=== PATIENT | male | born 1980 | race Caucasian/White ===

== ENCOUNTER 2022-11-13 13:29 | Emergency (ER) | payer BC, SELFPAY ==
[2022-11-13 13:35] VITALS: BP 116/69; PULSE 68; RESP 20; TEMP 36.4; O2SAT 98
--- NOTE | 2022-11-13 13:45 | DI.RAD_ITS ---
Exam(s) XR HAND LT COMPLETE EXAM: XR HAND LT COMPLETE CLINICAL HISTORY: crush injury. TECHNIQUE: 2D digital imaging was performed. Three views. COMPARISON: No exams were available for comparison FINDINGS: BONES: No acute fracture is present. No bony destructive lesion is seen. JOINTS: No dislocation present. SOFT TISSUE: Normal. IMPRESSION: Unremarkable radiographs of the left hand. DATA REPOSITORY: RADIATION DOSE DELIVERED:
--- NOTE | 2022-11-13 13:47 | W.ED.GENAD ---
Discharge Plan Disposition Patient Disposition: Home Condition: Good Discharge Details Clinical Impression: Crush injury of hand, Laceration of hand ED Provider: Alia Perez Home Meds and New Rx's Prescriptions: No Action No Known Home Meds Discharge Instructions Instructions: Laceration (ED) Additional Instructions: Imaging and exam are reassuring here today. No evidence of fracture dislocation or ligament injury. Please encourage rest, ice, elevation. Tylenol and ibuprofen as needed for discomfort. Please monitor wound for signs of infection including redness, warmth, drainage, fever/chills, increased pain. If you develop these or other new/worsening symptoms please seek care urgently once again. Referral for local primary care has been sent. Be aware that the laceration you sustained is thin enough that the tissue does not appear viable and will likely come off with time. Discharge Data Discharge Date/Time-TO BE ENTERED AT DEPARTURE: 11/13/22 15:00 Medical Decision Making Patient is a pleasant 42-year-old [id number] male presents today with chief complaint of left hand pain. He reports that prior to arrival he was moving a large oil tank which he estimates to hold 275 gallons down a flight of stairs when it slipped falling the last 6 inches crushing his hand between the tank and the wall. He did suffer a palmar side sided laceration which he has cleansed and closed with adhesive. He denies other injury at the time of the incident. Denies any numbness or tingling. No difficulty with movement but does have pain when doing so. Believes tetanus may be out of date. On exam, patient appears nontoxic. Exam the left upper extremity significant for a 1 cm linear laceration to the palmar side over the third metacarpal. No active bleeding. Does have ecchymosis and swelling over the third MCP joint on both the palmar and dorsal side. No palpable deformity. He has good range of motion. Sensation is intact into his fingers. No pain over the anatomical snuffbox. No pain to palpation the other fingers. Concern for potential fracture. Will obtain x-ray. We will also update tetanus. FINDINGS: BONES: No acute fracture is present. No bony destructive lesion is seen. JOINTS: No dislocation present.? SOFT TISSUE: Normal. IMPRESSION: Unremarkable radiographs of the left hand. Discussed these findings with the patient. Tetanus was updated. We discussed care of his wound. He did clean this and care for the wound at home. wound will be cared for once again hereto prevent any type of infection. Encouraged rest, ice, elevation. Tylenol and ibuprofen as needed for discomfort. Sign symptoms of infection and return precautions discussed. I did offer a finger splint and patient has declined this at this time. Advise follow-up with primary care. All of his questions and concerns were addressed and he is in agreement this plan. HPI General Date/Time Provider Initiated Documentation: 11/13/22 13:39. Limitations to Documentation: no limitations. Information obtained by: patient and RN notes reviewed. History of Present Illness 42 year old M presents to the emergency department with the chief complaint of crush injury left hand, described as moderate, with intensity rated at 4. Quality is described as aching, and is localized to the left and upper extremity. Patient reports no radiation. Patient started experiencing this minute(s) and it has been constant. Immobilization improves symptom(s), Movement worsens symptoms . Patient notes no other symptoms.. Patient did receive the following treatments prior to arrival, none Related Data Home Medications Medication Instructions Recorded Confirmed Unknown [No Known Home Meds] 11/13/22 11/13/22 Allergies Allergy/AdvReac Type Severity Reaction Status Date / Time No Known Allergies Allergy Unverified 11/13/22 13:38 General Stated Complaint: Orthopedic ENRIQUETA: 4 Review of Systems Constitutional Constitutional: Reports as per HPI and Denies weakness Cardiovascular Cardiovascular: Reports as per HPI Respiratory Respiratory: Reports as per HPI and Denies cough Musculoskeletal Musculoskeletal: Reports as per HPI and Denies tingling Integumentary/Breasts Skin/Breast: Reports as per HPI Neurologic Neurologic: Reports as per HPI, Denies tingling, Denies paresthesias and Denies weakness FORMERLY [facility] All Active Problems (Updated 11/13/22 @ 14:47 by CALISTA Rodgers) Crush injury of hand (Acute) Laceration of hand (Acute) Social History Smoking/Tobacco Use Status: Never Smoking risk assessment performed?: Yes Do you feel safe at home: Yes Do you feel safe in your relationship?: Yes Exam Const General: cooperative, healthy appearing, comfortable, no acute distress, well developed and well groomed Nutritional Appearance: average body habitus and well nourished Orientation: alert and awake Resp Effort & Inspection: normal respiratory effort, able to speak in complete sentences and no respiratory distress Cardio Rate: regular rate Rhythm: regular rhythm Skin Trauma: laceration Neuro General: patient alert and patient awake Cognition: normal cognition Speech: speech normal Gait: normal gait Motor: muscle tone normal throughout Sensory Exam: no sensory deficits noted Extrem Hand/finger images: 1. Linear abrasion. There is a thin flap that lifts up but this is more consistent with a pinch injury and blood coming to the surface rather than a deep laceration. Its like a linear area of ecchymosis. Patient also has pain and swelling over the MCP of the third digit. This area is ecchymotic and swollen. Sensation is intact in all digits. He has good range of motion although he does have increased pain with movement of that MCP joint. No pain over the anatomical snuffbox. No pain with axial thumb loading. Psych Appearance: grossly normal and well kempt Mental Status: mental status grossly normal Speech and Movement: speech and movement normal Course Vital Signs Vital signs: Vital Signs Temperature 36.4 C 11/13/22 13:35 Pulse 68 11/13/22 13:35 Respiratory Rate 20 11/13/22 13:35 Blood Pressure 116/69 11/13/22 13:35 Pulse Oximetry 98 11/13/22 13:35 Temperature 36.4 C 11/13/22 13:35 Temperature Source Tympanic 11/13/22 13:35 Pulse 68 11/13/22 13:35 Respiratory Rate 20 11/13/22 13:35 Blood Pressure 116/69 11/13/22 13:35 Blood Pressure Position Sitting 11/13/22 13:35 Pulse Oximetry 98 11/13/22 13:35 Pain Level 4 11/13/22 13:35
== END 2022-11-13 15:00 | disposition home or self-care (01) ==
PROVIDERS: Emergency Provider Physician Assistant
DX: S67.22XA Crushing injury of left hand, initial encounter (principal); X58.XXXA Exposure to other specified factors, initial encounter; S61.412A Laceration without foreign body of left hand, initial encounter
CPT/HCPCS: 90471; 99284; 73130